=== PATIENT | male | born 1970 | race Asian ===

== ENCOUNTER 2017-08-17 17:08 | Emergency (ER) | payer OTHER ==
[~2017-08-17] VITALS: Ht 180.3 cm; Wt 74.8 kg
[2017-08-17 17:17] VITALS: BP 131/92; Ht 180.3 cm; Wt 74.8 kg
== END 2017-08-17 20:13 | disposition home or self-care (01) ==
LOC: ED 17:08
DX: S93.402A Sprain of unspecified ligament of left ankle, initial encounter (principal); S90.32XA Contusion of left foot, initial encounter; Z88.0 Allergy status to penicillin; W22.8XXA Striking against or struck by other objects, initial encounter; Y93.89 Activity, other specified; Y92.89 Other specified places as the place of occurrence of the external cause; Y99.8 Other external cause status